=== PATIENT | male | born 2005 | race Hispanic/Latino ===

== ENCOUNTER 2023-03-05 21:42 | Emergency (ER) | payer MEDICAID ==
[~2023-03-05] VITALS: Ht 162.6 cm; Wt 54.0 kg
[2023-03-06 00:54] LABS: BASOPHILS % (AUTO) 0.5 % (0.0-5.0); HEMATOCRIT 48.5 % (42-54); LYMPHOCYTES % (AUTO) 2.3 % (21.0-51.0); MEAN CORPUSCULAR HEMOGLOBIN 28.2 pg (27.0-33.0); MEAN CORPUSCULAR HGB CONC 33.4 g/dL (32.0-36.0); MEAN CORPUSCULAR VOLUME 84.5 fL (80-100); MONOCYTES % (AUTO) 4.1 % (3.0-13.0); NEUTROPHILS % (AUTO) 92.3 % (40.0-77.0); PLATELET COUNT (AUTO) 208 K/uL (130-400); RED BLOOD CELL COUNT(AUTO) 5.74 MIL/uL (4.50-6.20); RED CELL DISTRIBUTION WIDTH 12.5 % (11.0-15.5); WHITE BLOOD COUNT (AUTO) 27.1 K/uL (4.8-10.8)
[2023-03-06 01:04] LABS: CARBON DIOXIDE 29 mmol/L (21-32); CHLORIDE 100 mmol/L (101-111); CREATININE 1.4 mg/dL (0.5-1.5); GLOMERULAR FILTR. RATE CALC 74 mL/min (>90); GLUCOSE,RANDOM 115 mg/dL (70-105); POTASSIUM 4.1 mmol/L (3.5-5.1); SODIUM SERUM 141 mmol/L (136-145); UREA NITROGEN, BLOOD 28 mg/dL (7-18)
[2023-03-06 01:06] LABS: APPEARANCE,URINE CLEAR (CLEAR); BILIRUBIN,URINE NEGATIVE (NEGATIVE); COLOR,URINE YELLOW (YELLOW); GLUCOSE, URINE (UA) NEGATIVE (NEGATIVE); KETONES,URINE 150 mg/dL (NEGATIVE); LEUKOCYTE ESTERASE ,URINE NEGATIVE Leu/uL (NEGATIVE); NITRATE,URINE NEGATIVE (NEGATIVE); PH,URINE 5.5 (5.0-8.0); PROTEIN,URINE 30 mg/dL (NEGATIVE); UROBILINOGEN,URINE 0.2 mg/dL (0.2-1.0)
[2023-03-06 01:08] LABS: MUCUS,URINE RARE LPF (None Seen)
[2023-03-06 01:08] LABS: ALANINE AMINOTRANSFERASE 24 U/L (12-78); ALBUMIN 5.4 g/dL (3.5-5.0); ASPARTATE AMINOTRANSFERASE 26 U/L (10-37); LIPASE < 50 U/L (114-286); TOTAL PROTEIN, SERUM 9.6 g/dL (6.0-8.3)
[2023-03-06] MEDS ORDERED: LACTATED RINGERS IV ONE (03:00)
[2023-03-06 04:33] LABS: APPEARANCE,URINE CLEAR (CLEAR); BILIRUBIN,URINE NEGATIVE (NEGATIVE); COLOR,URINE LIGHT-YELLOW (YELLOW); GLUCOSE, URINE (UA) NEGATIVE (NEGATIVE); KETONES,URINE 100 mg/dL (NEGATIVE); LEUKOCYTE ESTERASE ,URINE 25 Leu/uL (NEGATIVE); NITRATE,URINE NEGATIVE (NEGATIVE); OCCULT BLOOD,URINE NEGATIVE (NEGATIVE); PH,URINE 5.5 (5.0-8.0); PROTEIN,URINE 20 mg/dL (NEGATIVE); UROBILINOGEN,URINE 0.2 mg/dL (0.2-1.0)
[2023-03-06 04:36] LABS: MUCUS,URINE RARE LPF (None Seen)
[2023-03-06] MEDS ORDERED: LACTATED RINGERS 1000ML 1,000 ML IV ONE (05:00)
[2023-03-06] MEDS ORDERED: CEFTRIAXONE 2GM VIAL IVPB ONE (05:30)
[2023-03-06 06:13] VITALS: BP 122/68
[2023-03-06] MEDS ORDERED: DOXY-469 PO (06:34)
== END 2023-03-06 06:42 | disposition home or self-care (01) ==
LOC: EDH 21:42
DX: R53.83 Other fatigue (principal); N30.00 Acute cystitis without hematuria; M62.82 Rhabdomyolysis
CPT/HCPCS: 99284; 96374; 96361; 82550 ×2; 80053; 83690; 85025; 87040 ×2; 87088; 83605 ×2; 87797; 87486; 81001 ×2; 36415; 84145; 71046; J7120 ×2; J0696